=== PATIENT | female | born 1985 | race Caucasian/White ===

== ENCOUNTER 2018-02-02 16:36 | Emergency (ER) | payer OTHER ==
[2018-02-02] MEDS: MORPHINE 4 MG/ML 1ML VIAL/SYRINGE (J2270) IV ×2 (16:50→19:29)
[2018-02-02 16:57] LABS: BASO # 0.1 10^3/uL (0.0-0.2); BASO % 0.3 % (0.0-1.0); EOS % 0.1 % (0.0-3.0); HEMATOCRIT 38.2 % (36.0-47.0); HEMOGLOBIN 13.1 g/dl (12.0-15.5); IMMATURE GRANULOCYTE % 0.6 % (0-3.0); LYMPH # 1.1 10^3/uL (1.5-4.5); LYMPH % 6.5 % (24.0-44.0); MEAN CORPUSCULAR HGB CONC 34.3 g/dl (32.0-36.5); MEAN CORPUSCULAR VOLUME 90.3 fl (80.0-96.0); MONO # 1.6 10^3/uL (0.0-0.8); MONO % 9.4 % (0.0-5.0); NEUTROPHILS # 14.1 10^3/uL (1.8-7.7); NEUTROPHILS % 83.1 % (36.0-66.0); PLATELET COUNT, AUTOMATED 297 10^3/uL (150-450); RED BLOOD COUNT 4.23 10^6/uL (4.00-5.40); RED CELL DISTRIBUTION WIDTH 12.7 % (11.5-14.5)
[2018-02-02 17:17] LABS: INR 0.87; PROTHROMBIN TIME 11.9 SECONDS (12.1-14.4)
[2018-02-02 17:18] LABS: PARTIAL THROMBOPLASTIN TIME 22.1 SECONDS (25.4-37.6)
[2018-02-02] MEDS: ONDANSETRON 4MG/2ML VIAL (J2405) IV (17:19)
[2018-02-02] MEDS: KETOROLAC 30 MG/ML VIAL (J1885) IV (17:19)
[2018-02-02] MEDS: NS 1,000 ML IV (17:20)
[2018-02-02] MEDS: LORazepam 2 MG/ML VIAL (J2060) IV (17:20)
== END 2018-02-02 19:44 | disposition short-term general hospital (02) ==
LOC: M ED 16:36
DX: S82.302A Unspecified fracture of lower end of left tibia, initial encounter for closed fracture (principal); S89.302A Unspecified physeal fracture of lower end of left fibula, initial encounter for closed fracture; W23.1XXA Caught, crushed, jammed, or pinched between stationary objects, initial encounter; Y93.01 Activity, walking, marching and hiking
CPT/HCPCS: J2270